=== PATIENT | female | born 1980 | race Caucasian/White ===

== ENCOUNTER 2017-04-01 00:47 | Emergency (ER) | payer BC ==
[2017-04-01 02:41] LABS: Hematocrit 36 % (35-47); Hemoglobin 12.6 g/dl (12.0-16.0); Mean Corpuscular HGB Conc 35 g/dl (31-36); Mean Corpuscular Hemoglobin 31 pg (27-31); Mean Corpuscular Volume 89 fL (80-97); Mean Platelet Volume 8 um3 (7.4-10.4); Red Blood Count 4.09 10^6/ul (4.0-5.4); Red Cell Distribution Width 14 % (10.5-15)
[2017-04-01 02:48] LABS: Urine Bacteria 1+ (Absent); Urine Bilirubin Negative (Negative); Urine Glucose Negative (Negative); Urine Nitrite Negative (Negative)
[2017-04-01 02:53] LABS: Albumin 3.4 g/dL (3.2-5.2); BUN/Creatinine Ratio 12.5 (8-20); Calcium 8.6 mg/dL (8.6-10.3); EGFR African American 133.6 (>60); EGFR Non-African American 103.9 (>60); Globulin 2.9 g/dL (2-4); Potassium 3.6 mmol/L (3.5-5.0); Total Bilirubin 0.3 mg/dL (0.2-1.0); Total Protein 6.3 g/dL (6.4-8.9)
[2017-04-01] MEDS ORDERED: Al Hydrox/Mg Hydrox/Simet LIQ* 30 ML UDC PO ONE (03:10)
[2017-04-01] MEDS ORDERED: Famotidine TAB* 20 MG PO ONE (03:36)
[2017-04-01] MEDS ORDERED: Famotidine TAB* 20 MG ONE (03:38)
[2017-04-01 03:50] VITALS: BP 124/69
--- NOTE | 2017-04-01 06:49 | ED ---
Gerard Spring Rebecca, scribed for Ghassan Fisher on 04/01/17 at 0112 . - HPI Summary HPI Summary: Pt is a 37 y/o F who is 32 weeks present to ED c/o intermittent, epigastric abdominal pain. Pain began suddenly tonight at 2300 and has been intermittent since onset. Pain is sharp, ranked 8/10 when present. Episodes last between 30 seconds to a minute and occur every few minutes. 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 Sx aggravated and alleviated by nothing. Additionally c/o nausea. Denies vomiting, vaginal bleeding. Prior similar episode a long time ago. 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 - History of Current Complaint Chief Complaint: EDAbdPain Stated Complaint: ABD PAIN Time Seen by Provider: 04/01/17 01:10 Hx Obtained From: Patient Chief Complaint: Pain Onset/Duration: Started Hours Ago, Still Present Timing: Intermittent, Lasting Seconds Current Severity: Severe Pain Intensity: 8 Location of Pain: Other: - Epigastric Character: Sharp Aggravating Factors: Nothing Alleviating Factors: Nothing Associated Signs and Symptoms: Positive: Nausea. Negative: Vaginal Bleeding or Discharge, Vomiting - Assessment SAB: 2 IEA: 0 - Additional Pertinent History Maternal Blood Type and Rh: O Positive - Allergies/Home Medications Allergies/Adverse Reactions: Allergies Allergy/AdvReac Type Severity Reaction Status Date / Time Amitriptyline Allergy Tachycardia Verified 03/26/13 11:27 PMH/Surg Hx/FS Hx/Imm Hx Cardiovascular History: Denies: Other Cardiovascular Problems/Disorders Respiratory History: Denies: Other Respiratory Problems/Disorders GI History: Denies: Other GI Disorders Sensory History: Denies: Hx Contacts or Glasses, Hx Hearing Aid Opthamlomology History: Denies: Hx Contacts or Glasses Neurological History: Reports: Hx Migraine - INFREQUENT- 2 PER YEAR Denies: Other Neuro Impairments/Disorders - Surgical History Surgery Procedure, Year, and Place: D/C, 2009, [facility] Hx Anesthesia Reactions: No Infectious Disease History: No Infectious Disease History: Denies: Traveled Outside the [place] in Last 30 Days - Family History Known Family History: Positive: Other - Emphysema, Lung CA - Social History Alcohol Use: None Substance Use Type: Reports: None Smoking Status (MU): Never Smoked Tobacco Have You Smoked in the Last Year: No Review of Systems Positive: Abdominal Pain, Nausea. Negative: Vomiting Positive: other - NEGATIVE: Vaginalbleeding All Other Systems Reviewed And Are Negative: Yes Physical Exam - Summary Physical Exam Summary: Appearance: Well appearing, no pain distress Skin: warm, dry, reflects adequate perfusion Head/face: normal Eyes: EOMI, HANNAH ENT: normal Neck: supple, nontender Respiratory: CTA, breath sounds present Cardiovascular: RRR, pulses symmetrical Abdomen: nontender, soft, distended Bowel: present Musculoskeletal: normal, strength/ROM intact Neuro: normal, sensory motor intact, A&Ox3 - Physical Exam Triage Information Reviewed: Yes Vital Signs Reviewed: Yes Diagnostics - Vital Signs Vital Signs Temp Pulse Resp BP Pulse Ox 04/01/17 00:50 97.8 F 102 18 127/56 99 - Laboratory Result Diagrams: 04/01/17 02:25 04/01/17 02:25 Lab Statement: Any lab studies that have been ordered have been reviewed, and results considered in the medical decision making process. - Ultrasound No standard instances Ultrasound Interpretation: No Acute Changes - Abdomen US: No acute findings. ED physician reviewed radiology report and agrees. Ultrasound Interpretation Completed By: Radiologist Course/Dx - Course Assessment/Plan: Pt is a 37 y/o F who is 32 weeks present to ED c/o intermittent, epigastric abdominal pain. Pain began suddenly tonight at 2300 and has been intermittent since onset. Pain is sharp, ranked 8/10 when present. Episodes last between 30 seconds to a minute and occur every few minutes. 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 Additionally c/o nausea. Denies vomiting, vaginal bleeding. Prior similar episode a long time ago. 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 Abdomen US reveals no acute findings. UA negative for UTI. In the ED course, pt received Maalox and Pepcid. She will be D/C to home with Dx of , GERD and abdominal pain with a follow up with [facility] referral. She understands and agrees. Allergies noted. Medications reviewed. - Diagnoses Provider Diagnoses: , Abdominal pain, GERD (gastroesophageal reflux disease) - Provider Notifications Discussed Care Of Patient With: Rickey David Time Discussed With Above Provider: 01:35 Instructed by Provider To: Other - Recommended an US to r/o appy and cholecystitis Discharge - Discharge Plan Condition: Stable Disposition: HOME Patient Education Materials: (ED), Abdominal Pain in (ED) , Gastroesophageal Reflux Disease (ED) Referrals: [facility]YS[facility]IAN REFERRAL [Outside] The documentation as recorded by the Gerard abbott Rebecca accurately reflects the service I personally performed and the decisions made by , Ghassan Fisher.
--- NOTE | 2017-04-01 08:13 | RAD ---
Indication: Right upper quadrant pain. Real-time sonography of the right upper quadrant was performed. The liver is mildly enlarged. It measures 19 cm in length. No focal lesions or intrahepatic ductal dilatation is noted. The gallbladder demonstrates no gallstones, pericholecystic fluid or wall thickening. The common duct measures up to 4.4 mm. The right kidney measures 12.0 x 4.7 x 6.5 cm. No hydronephrosis is noted. Evaluation of the pancreas is limited. Aorta and inferior vena cava are grossly unremarkable. Graded compression sonography of the right lower quadrant demonstrates no evidence of tubular fluid-filled structure to suggest appendicitis. The appendix is not visualized. IMPRESSION: No evidence of cholelithiasis or biliary duct dilatation. Appendix not visualized.
== END 2017-04-01 03:49 | disposition home or self-care (01) ==
LOC: ED 00:47
DX: R10.9 Unspecified abdominal pain (principal); K21.9 Gastro-esophageal reflux disease without esophagitis; Z34.93 Encounter for supervision of normal pregnancy, unspecified, third trimester; R11.0 Nausea
CPT/HCPCS: 36415; 76705; 80053; 81003; 81015; 83690; 85025; 87086; 99282; A9270-GY

== ENCOUNTER 2017-05-18 08:07 | Inpatient (IN) | payer BC ==
[2017-05-18] MEDS ORDERED: Oxytocin in LR* 20 UNITS/1,000 ML BAG IVPB ONE (09:10)
[2017-05-18] MEDS ORDERED: Oxytocin in LR* 20 UNITS/1,000 ML BAG IVPB SCH (10:00)
[2017-05-18 10:01] LABS: Hematocrit 35 % (35-47); Hemoglobin 12.2 g/dl (12.0-16.0); Mean Corpuscular HGB Conc 34 g/dl (31-36); Mean Corpuscular Hemoglobin 29 pg (27-31); Mean Corpuscular Volume 85 fL (80-97); Mean Platelet Volume 8 um3 (7.4-10.4); Red Blood Count 4.17 10^6/ul (4.0-5.4); Red Cell Distribution Width 15 % (10.5-15); White Blood Count 9.5 10^3/ul (3.5-10.8)
[2017-05-18] MEDS ORDERED: Dinoprostone* 10 MG VAG.SUPP VAGINAL ONE (18:39)
[2017-05-19] MEDS ORDERED: OBEPIDURAL* 250 ML ONE (08:53)
[2017-05-19] MEDS ORDERED: Dibucaine 1% 28.35 GM TUBE PR PRN (13:57)
[2017-05-19] MEDS ORDERED: Glycerin ADULT SUPP PR PRN (13:57)
[2017-05-19] MEDS ORDERED: Acetaminophen TAB* 325 MG PO PRN (13:57)
[2017-05-19] MEDS ORDERED: Witch Hazel PAD* JAR TOPICAL PRN (13:57)
[2017-05-19] MEDS ORDERED: Oxytocin in LR* 20 UNITS/1,000 ML BAG IVPB SCH (14:00)
[2017-05-19] MEDS: Docusate CAP* 100 MG PO SCH ×2 (14:26→21:00)
[2017-05-19] MEDS: Ibuprofen TAB* 600 MG PO PRN (17:19)
[2017-05-20] MEDS: Ibuprofen TAB* 600 MG PO PRN ×3 (00:41→14:30)
[2017-05-20 08:08] LABS: Hematocrit 36 % (35-47); Mean Corpuscular HGB Conc 34 g/dl (31-36); Mean Corpuscular Hemoglobin 29 pg (27-31); Mean Corpuscular Volume 87 fL (80-97); Mean Platelet Volume 8 um3 (7.4-10.4); Red Blood Count 4.12 10^6/ul (4.0-5.4); Red Cell Distribution Width 15 % (10.5-15); White Blood Count 11.7 10^3/ul (3.5-10.8)
[2017-05-20 08:12] VITALS: BP 128/63
[2017-05-20] MEDS ORDERED: Ferrous Gluconate TAB* 324 MG TAB PO SCH (09:00)
[2017-05-20] MEDS: Docusate CAP* 100 MG PO SCH ×2 (09:16→14:30)
== END 2017-05-20 20:54 | disposition home or self-care (01) | DRG 560 ==
LOC: MCHOBOUT 08:07 → MCHOB 08:34
PROVIDERS: ADMIT Midwife; ATTEND Midwife
PROC: 10E0XZZ Delivery of Products of Conception, External Approach (ICD-10-PCS; principal; 2017-05-19)
PROC: 10907ZC Drainage of Amniotic Fluid, Therapeutic from Products of Conception, Via Natural or Artificial Opening (ICD-10-PCS; 2017-05-19)
PROC: 3E033VJ Introduction of Other Hormone into Peripheral Vein, Percutaneous Approach (ICD-10-PCS; 2017-05-19)
DX: O80 Encounter for full-term uncomplicated delivery (principal); Z37.0 Single live birth; Z3A.39 39 weeks gestation of pregnancy
CPT/HCPCS: 36415; 85025; 86850; 86900; 86901; A9270-GY

== ENCOUNTER → 2018-05-04 | Emergency (ER) | payer BC ==
[~2018-05-04] MED LIST: Sulfamethox/Trimethoprim DS 800/160* TAB PO ONE
[2018-05-04 20:05] LABS: Urine Appearance Cloudy; Urine Blood 3+ (Negative); Urine Color Straw; Urine Ketones Negative (Negative); Urine Protein Negative (Negative); Urine Red Blood Cell 3+(>10/hpf) (Absent); Urine Specific Gravity 1.003 (1.010-1.030); Urine Urobilinogen Negative (Negative); Urine White Blood Cell 3+(>20/hpf) (Absent)
--- NOTE | 2018-05-04 21:49 | ED ---
GI/ HPI - HPI Summary HPI Summary: This patient is a 38 year old F presenting to [facility] with a chief complaint of UTI sx that began yesterday but were worse today. The patient rates the pain 2/ 10 in severity. Patient reports bilateral flank pain, burning, frequency, and urgency. Patient denies fever and n/v/d. Pt states she has had 3 in the past. She is and does not want any other treatment other than abx. - History of Current Complaint Chief Complaint: EDUrogenitalProblems Time Seen by Provider: 05/04/18 21:39 Stated Complaint: BACK PAIN/BURNING WHEN URINATING Hx Obtained From: Patient Onset/Duration: Still Present Timing: Constant Severity: Moderate Current Severity: Moderate Pain Intensity: 2 Location of Pain: Flank Associated Signs and Symptoms: Positive: Negative - fever, n/v/d - Allergy/Home Medications Allergies/Adverse Reactions: Allergies Allergy/AdvReac Type Severity Reaction Status Date / Time MS Amitriptyline Allergy Mild Tachycardia Verified 05/18/17 13:04 [Amitriptyline] PMH/Surg Hx/FS Hx/Imm Hx Cardiovascular History: Denies: Other Cardiovascular Problems/Disorders Respiratory History: Denies: Other Respiratory Problems/Disorders GI History: Denies: Other GI Disorders Musculoskeletal History: Denies: Hx Back Problems Sensory History: Denies: Hx Contacts or Glasses, Hx Hearing Aid Opthamlomology History: Denies: Hx Contacts or Glasses Neurological History: Reports: Hx Migraine - INFREQUENT- 2 PER YEAR Denies: Other Neuro Impairments/Disorders - Surgical History Surgery Procedure, Year, and Place: D/C, 2009, [facility] [place], [place] Hx Anesthesia Reactions: No Infectious Disease History: No Infectious Disease History: Denies: Traveled Outside the [place] in Last 30 Days - Family History Known Family History: Positive: Other - Emphysema, Lung CA - Social History Lives: With Family Alcohol Use: None Substance Use Type: Reports: None Smoking Status (MU): Never Smoked Tobacco Have You Smoked in the Last Year: No Review of Systems Negative: Fever Negative: Vomiting, Diarrhea, Nausea Positive: burning, frequency, flank pain, urgency All Other Systems Reviewed And Are Negative: Yes Physical Exam - Summary Physical Exam Summary: GENERAL: Patient is a well-developed and nourished F who is lying comfortable in the stretcher. Patient is not in any acute respiratory distress. HEAD AND FACE: Normocephalic EYES: PERRLA, EOMI x 2. EARS: Hearing grossly intact. MOUTH: Oropharynx within normal limits. NECK: Supple, trachea is midline, no adenopathy, no JVD, no carotid bruit. CHEST: Symmetric, no tenderness at palpation LUNGS: Clear to auscultation bilaterally. No wheezing or crackles. CVS: Regular rate and rhythm, S1 and S2 present, no murmurs or gallops appreciated. ABDOMEN: Soft, mild suprapubic tenderness. Bowel sounds are normal. No abdominal abnormal pulsations. No CVA tenderness EXTREMITIES: Full ROM in all major joints, no edema, no cyanosis or clubbing. NEURO: Alert and oriented x 3. No acute neurological deficits. Speech is normal and follows commands. SKIN: Dry and warm Triage Information Reviewed: Yes Vital Signs On Initial Exam: Initial Vitals Temp Pulse Resp BP Pulse Ox 98.0 F 92 16 140/78 99 05/04/18 19:40 05/04/18 19:40 05/04/18 19:40 05/04/18 19:40 05/04/18 19:40 Vital Signs Reviewed: Yes Diagnostics - Vital Signs Vital Signs Temp Pulse Resp BP Pulse Ox 05/04/18 19:40 98.0 F 92 16 140/78 99 - Laboratory Lab Results: Lab Results 05/04/18 Range/Units 19:50 Urine Color Straw Urine Appearance Cloudy Urine pH 7.0 (5-9) Ur Specific [place] 1.003 L (1.010-1.030) Urine Protein Negative (Negative) Urine Ketones Negative (Negative) Urine Blood 3+ A (Negative) Urine Nitrate Negative (Negative) Urine Bilirubin Negative (Negative) Urine Urobilinogen Negative (Negative) Ur Leukocyte Esterase 3+ A (Negative) Urine WBC (Auto) 3+(>20/hpf) A (Absent) Urine RBC (Auto) 3+(>10/hpf) A (Absent) Ur Squamous Epith Cells Present A (Absent) Urine Bacteria Absent (Absent) Urine Glucose Negative (Negative) Lab Statement: Any lab studies that have been ordered have been reviewed, and results considered in the medical decision making process. GIGU Course/Dx - Course Assessment/Plan: This patient is a 38 year old F presenting to [facility] with a chief complaint of UTI sx that began yesterday but were worse today. The patient rates the pain 2/10 in severity. Patient reports bilateral flank pain, burning, frequency, and urgency. Patient denies fever and n/v/d. Pt states she has had 3 in the past. She is and does not want any other treatment other than abx. UA was positive for UTI. Patient will be discharged with prescription for bactrim and follow up from PCP. The patient is agreeable with this plan. - Diagnoses Provider Diagnoses: UTI (urinary tract infection) Discharge - Sign-Out/Discharge Documenting (check all that apply): Patient Departure - Discharge Plan Condition: Stable Disposition: HOME Prescriptions: Sulfamethox/Trimethoprim DS* [Bactrim DS 800/160 TAB*] 1 tab PO BID #14 tab Patient Education Materials: Urinary Tract Infection in Women (ED) Referrals: [facility] [place] [place] PHYSICIAN REFERRAL [Outside] Additional Instructions: Follow up with your primary care physician in 1-3 days. RETURN TO THE EMERGENCY DEPARTMENT FOR CHANGING OR WORSENING SYMPTOMS. - Attestation Statements Document Initiated by Scribe: Yes Documenting Scribe: Radames Gonsalez Provider For Whom Scribe is Documenting (Include Credential): Naveed Jeffers MD Scribe Attestation: Radames Spring , scribed for Naveed Jeffers MD on 05/04/18 at 2150.
[2018-05-04 22:08] VITALS: BP 118/62
--- NOTE | 2018-05-07 18:24 | ED ---
Progress - Progress Note Progress Note: Patient's urine culture reveals 10- 25,000 of Escherichia coli. Patient was started on Bactrim to which organism is sensitive. No change in treatment at this time. Course/Dx - Diagnoses Provider Diagnoses: UTI (urinary tract infection) Discharge - Sign-Out/Discharge Documenting (check all that apply): Post-Discharge Follow Up - Discharge Plan Condition: Stable Disposition: HOME Prescriptions: Sulfamethox/Trimethoprim DS* [Bactrim DS 800/160 TAB*] 1 tab PO BID #14 tab Patient Education Materials: Urinary Tract Infection in Women (ED) Referrals: [facility] [place] [place]Outside] Additional Instructions: Follow up with your primary care physician in 1-3 days. RETURN TO THE EMERGENCY DEPARTMENT FOR CHANGING OR WORSENING SYMPTOMS. - Billing Disposition and Condition Condition: STABLE Disposition: Home
== END | disposition home or self-care (01) ==
LOC: ED 19:30
DX: N39.0 Urinary tract infection, site not specified (principal); Z88.8 Allergy status to other drugs, medicaments and biological substances
CPT/HCPCS: 81003; 81015; 87077; 87086; 87186; 99282; A9270-GY

== ENCOUNTER 2019-02-20 09:42 | Emergency (ER) | payer BC ==
[2019-02-20] MEDS ORDERED: Ibuprofen TAB* 600 MG PO ONE (11:40)
[2019-02-20 12:19] VITALS: BP 111/57
--- NOTE | 2019-02-20 12:31 | UC ---
Abdominal Pain Female HPI - HPI Summary HPI Summary: 12 HOURS OF SHARP STABBING UPPER ABDOMINAL PAIN WITH NAUSEA AND 2 EPISODES OF VOMITING OVERNIGHT. NO FEVER. STATES SHE HAS HAD ABOUT 7 EPISODES OF THIS OVER THE PAST 25 YEARS. - History of Current Complaint Chief Complaint: UCAbdominalPain Stated Complaint: ABD PAIN Time Seen by Provider: 02/20/19 11:31 Hx Obtained From: Patient, Family/Real Estate Professor - Hx Last Menstrual Period: 02/03/19 Onset/Duration: Sudden Onset, Lasting Hours, Still Present Timing: Constant Severity Initially: Moderate Severity Currently: Moderate Pain Intensity: 5 Pain Scale Used: 0-10 Numeric Location: Discrete At: RUQ, Epigastric Radiates: No Character: Sharp Aggravating Factor(s): Nothing Alleviating Factor(s): Nothing Associated Signs and Symptoms: Positive: Nausea, Vomiting Allergies/Adverse Reactions: Allergies Allergy/AdvReac Type Severity Reaction Status Date / Time amitriptyline Allergy Tachycardia Verified 02/20/19 12:07 PMH/Surg Hx/FS Hx/Imm Hx Previously Healthy: Yes - Surgical History Surgical History: Yes Surgery Procedure, Year, and Place: D/C, 2009, [facility] [place] - Family History Known Family History: Positive: Other - Emphysema, Lung CA - Social History Alcohol Use: None Substance Use Type: None Smoking Status (MU): Never Smoked Tobacco Have You Smoked in the Last Year: No - Immunization History Most Recent Influenza Vaccination: 03/26/17 Most Recent Tetanus Shot: 10/03/15 Most Recent Pneumonia Vaccination: never Review of Systems All Other Systems Reviewed And Are Negative: Yes Constitutional: Positive: Negative Respiratory: Positive: Negative Cardiovascular: Positive: Negative Gastrointestinal: Positive: Abdominal Pain, Vomiting, Nausea Genitourinary: Positive: Negative Physical Exam Triage Information Reviewed: Yes Appearance: Well-Nourished, Pain Distress - MODERATE Vital Signs: Initial Vital Signs Temp 97.8 F 02/20/19 09:47 Pulse 110 02/20/19 09:47 Resp 20 02/20/19 09:47 BP 106/61 02/20/19 09:47 Pulse Ox 100 02/20/19 09:47 Vital Signs Reviewed: Yes Eyes: Positive: Conjunctiva Clear ENT: Positive: Hearing grossly normal Neck: Positive: Supple Respiratory Exam: Normal Cardiovascular: Positive: Tachycardia Abdomen Description: Positive: Soft, Other: - RUQ TENDERNESS, NEG BROWN'S. NO REBOUND OR RIGIDITY. Negative: CVA Tenderness (R), CVA Tenderness (L), Distended, Guarding Bowel Sounds: Positive: Present Musculoskeletal: Positive: No Edema Neurological: Positive: Alert Psychological: Positive: Age Appropriate Behavior Skin: Negative: Rashes Diagnostics - Radiology GB US Radiology Interpretation Completed By: Radiologist Summary of Radiographic Findings: Unremarkable right upper quadrant ultrasound with no evidence of cholelithiasis or biliary duct dilatation. Abd Pain Female Course/Dx - Course Course Of Treatment: 12 HOURS OF SHARP RIGHT UPPER QUADRANT/EPIGASTRIC PAIN. GALLBLADDER ULTRASOUND TODAY UNREMARKABLE. PATIENT HAS HAD THESE SYMPTOMS INTERMITTENTLY OVER THE PAST COUPLE OF DECADES. I RECOMMENDED SHE SEE GI FOR EVALUATION OF GALLBLADDER FUNCTION. CBC, CMP, LIPASE DRAWN TODAY. TO THE ER WITHOUT FAIL IF SYMPTOMS WORSEN. - Differential Dx/Diagnosis Provider Diagnosis: RUQ abdominal pain Discharge ED - Sign-Out/Discharge Documenting (check all that apply): Patient Departure All imaging exams completed and their final reports reviewed: Yes - Discharge Plan Condition: Stable Disposition: HOME Prescriptions: Ondansetron ODT TAB* [Zofran Odt TAB*] 4 mg PO Q6H PRN #20 tab.odt PRN Reason: Nausea/Vomiting Patient Education Materials: Abdominal Pain (ED) Referrals: [facility] [Provider Group] - 2 Weeks Additional Instructions: GALLBLADDER ULTRASOUND TODAY WAS UNREMARKABLE. GIVEN YOUR HISTORY OF RECURRENT SYMPTOMS CONSIDER GI FOLLOW-UP TO EVALUATE YOUR GALLBLADDER FUNCTION. CLEAR LIQUID DIET UNTIL YOUR SYMPTOMS ARE IMPROVED. AVOID HIGH FAT FOODS THIS MAY WORSEN GALLBLADDER SYMPTOMS. LABS DRAWN TODAY - BLOOD COUNT, METABOLIC PANEL, PANCREATIC ENZYMES. WE WILL CALL YOU WITH ANY ABNORMAL RESULTS. GO TO THE ER WITHOUT FAIL IF YOU DEVELOP WORSENING PAIN, PERSISTENT NAUSEA/ VOMITING, FEVER OR ANY OTHER CONCERNING SYMPTOMS. [facility] Address: [address], [place] [address] - Billing Disposition and Condition Condition: STABLE Disposition: Home
[2019-02-20 16:16] LABS: ABS Lymphocytes 0.3 10^3/ul (1.0-4.8); ABS Monocytes 0.3 10^3/ul (0-0.8); ABS Neutrophils 7.3 10^3/ul (1.5-7.7); Hematocrit 37 % (35-47); Hemoglobin 12.7 g/dL (12.0-16.0); Lymphocyte % 3.5 %; Mean Corpuscular HGB Conc 35 g/dL (31-36); Mean Corpuscular Hemoglobin 29 pg (27-31); Mean Corpuscular Volume 84 fL (80-97); Mean Platelet Volume 9.1 fL (7.4-10.4); Nucleated Red Blood Cells % 0.1; Platelet Count 185 10^3/uL (150-450); Red Blood Count 4.34 10^6 /uL (3.70-4.87); Red Cell Distribution Width 14 % (10-15); White Blood Count 7.9 10^3/uL (3.5-10.8)
[2019-02-20 16:23] LABS: Albumin 4.2 g/dL (3.2-5.2); Potassium 3.6 mmol/L (3.5-5.0); Total Bilirubin 0.7 mg/dL (0.2-1.0)
[2019-02-20 16:29] LABS: Albumin/Globulin Ratio 1.8 (1-3); BUN/Creatinine Ratio 15.5 (8-20); EGFR African American 110.9 (>60); EGFR Non-African American 91.6 (>60); Globulin 2.3 g/dL (2-4); Total Protein 6.5 g/dL (6.4-8.9)
== END 2019-02-20 12:55 | disposition home or self-care (01) ==
LOC: UCEAST 09:42
DX: R10.11 Right upper quadrant pain (principal)
CPT/HCPCS: 36415; 76705; 80053; 83690; 85025; 99212; A9270-GY; G0463